=== PATIENT | male | born 1980 | race Caucasian/White ===

== ENCOUNTER 2017-06-03 11:16 | Emergency (ER) | payer SELFPAY ==
[2017-06-03 11:53] VITALS: BP 133/84
--- NOTE | 2017-06-03 12:14 | UC ---
Skin Complaint HPI - HPI Summary HPI Summary: Pt presents with c/o left upper, lateral arm tenderness, redness s/p tick bite, that was removed within 24 hours of getting bit. X 3 days ago. 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 - History of Current Complaint Chief Complaint: [facility] Time Seen by Provider: 06/03/17 11:30 Stated Complaint: TICK BITE Hx Obtained From: Patient Onset/Duration: Sudden Onset, Lasting Days Skin Exposure Onset/Duration: Days Ago - 3 Timing: Constant Onset Severity: Mild Location: Discrete - left upper arm Character: Redness, Painful Aggravating: Touch Associated Signs & Symptoms: Positive: Tenderness Related History: Insect Bite/Sting - tick - Allergy/Home Medications Allergies/Adverse Reactions: Allergies Allergy/AdvReac Type Severity Reaction Status Date / Time No Known Allergies Allergy Verified 06/03/17 11:53 Review of Systems Constitutional: Negative Skin: Other - tick bite, left upper, lateral arm Eyes: Negative ENT: Negative Respiratory: Negative Cardiovascular: Negative Gastrointestinal: Negative Genitourinary: Negative Motor: Negative Neurovascular: Negative Musculoskeletal: Negative Neurological: Negative Psychological: Negative All Other Systems Reviewed And Are Negative: Yes PMH/Surg Hx/FS Hx/Imm Hx Previously Healthy: Yes - Surgical History Surgical History: None - Family History Known Family History: Positive: Other - positive for URI - Social History Alcohol Use: None Substance Use Type: None Smoking Status (MU): Never Smoked Tobacco Physical Exam Triage Information Reviewed: Yes Appearance: Well-Appearing Vital Signs: Initial Vital Signs Temp 98.3 F 06/03/17 11:42 Pulse 65 06/03/17 11:42 Resp 14 06/03/17 11:42 BP 133/84 06/03/17 11:42 Pulse Ox 97 06/03/17 11:42 Vital Signs Reviewed: Yes Eye Exam: Normal ENT Exam: Normal Neck exam: Normal Respiratory Exam: Normal Cardiovascular Exam: Normal Musculoskeletal Exam: Normal Neurological Exam: Normal Psychological Exam: Normal Skin Exam: Other - erythema, circular area, approximately 3 cm in diameter, evidence of "bite" small puncture wound. in center of erythema Course/Dx - Differential Diagnoses - Skin Complaint Differential Diagnoses: Abscess, Cellulitis, Tick Born Illness - Diagnoses Provider Diagnoses: cellulitis,. insect bite Discharge - Discharge Plan Condition: Stable Disposition: HOME Prescriptions: DOXYcycline CAP(*) [DOXYcycline 100MG CAP(*)] 100 mg PO BID #[id number] cap Patient Education Materials: Cellulitis (ED), Tick Bite (ED) Referrals: [facility] [Outside]
== END 2017-06-03 12:32 | disposition home or self-care (01) ==
LOC: UCCORT 11:16
DX: S40.862A Insect bite (nonvenomous) of left upper arm, initial encounter (principal); L03.114 Cellulitis of left upper limb; W57.XXXA Bitten or stung by nonvenomous insect and other nonvenomous arthropods, initial encounter; Y93.9 Activity, unspecified; Y92.9 Unspecified place or not applicable
CPT/HCPCS: 99202; G0463